=== PATIENT | female | born 1970 | race Native Hawaiian/Other Pacific Islander ===

== ENCOUNTER 2019-12-07 12:05 | Emergency (ER) | payer MEDICAID ==
--- NOTE | 2019-12-07 12:44 | Emergency Department Record ---
History of Present Illness - General Chief Complaint: Difficulty Swallowing Stated Complaint: DIFFICULTY SWALLOWING/CONGESTION Time Seen by Provider: 12/07/19 12:24 Source: Patient Mode of Arrival: Ambulatory Limitations: No limitations - History of Present Illness Initial Comments: pt c/o pain in throat and neck and difficulty swallowing for 2 days. Onset/Timin -: Days(s) History of same: No Improves With: None Worsens With: Other (swallowing) Associated Symptoms: Denies other symptoms - [facility] Coma Scale Eye Response: (4) Open spontaneously Motor Response: (6) Obeys commands Verbal Response: (5) Oriented [facility] Total: 15 - Related Data Home Medications: Previous Rx's Medication Instructions Recorded Acetaminophen [Tylenol 325Mg] 650 mg PO Q6H PRN tablet 08/20/19 Ibuprofen [Motrin 600Mg] 600 mg PO Q6H #30 tablet 08/20/19 Allergies/Adverse Reactions: Allergies Allergy/AdvReac Type Severity Reaction Status Date / Time ciprofloxacin [From Cipro] Allergy Severe MUSCLE PAIN Verified 12/07/19 12:19 ciprofloxacin HCl Allergy Severe MUSCLE PAIN Verified 12/07/19 12:19 [From Cipro] codeine Allergy Severe VOMITING Verified 12/07/19 12:19 morphine Allergy Severe VOMITING Verified 12/07/19 12:19 nitrofurantoin Allergy Severe HIVES Verified 12/07/19 12:19 [From Macrobid] nitrofurantoin Allergy Severe HIVES Verified 12/07/19 12:19 macrocrystalline [From Macrobid] Penicillins Allergy Severe HIVES Verified 12/07/19 12:19 Sulfa (Sulfonamide Allergy Severe HIVES Verified 12/07/19 12:19 Antibiotics) Iodine and Iodide Containing Allergy FLUSHING Verified 12/07/19 12:19 Produc Travel Screening - Travel/Exposure Within Last 30 Days Have you traveled within the last 30 days?: No - Travel/Exposure Within Last Year Have you traveled outside the [place] in the last year?: No - Additonal Travel Details Have you been exposed to anyone with a communicable illness?: No - Travel Symptoms Symptom Screening: None Review of Systems Reviewed: No additional complaints except as noted below Constitutional: Reports: As per HPI. Denies: Chills, Fever, Malaise, Night sweats, Weakness, Weight change Eyes: Reports: As per HPI. Denies: Eye discharge, Eye pain, Photophobia, Vision change ENT: Reports: As per HPI, Throat pain. Denies: Congestion, Dental pain, Ear pain, Epistaxis, Hearing loss Respiratory: Reports: As per HPI. Denies: Cough, Dyspnea, Hemoptysis, Stridor, Wheezes Cardiovascular: Reports: As per HPI. Denies: Arrhythmia, Chest pain, Dyspnea on exertion, Edema, Murmurs, Orthopnea, Palpitations, Paroxysmal nocturnal dyspnea, Rheumatic Fever, Syncope Endocrine: Reports: As per HPI. Denies: Fatigue, Heat or cold intolerance, Polydipsia, Polyuria Gastrointestinal: Reports: As per HPI. Denies: Abdominal pain, Constipation, Diarrhea, Hematemesis, Hematochezia, Melena, Nausea, Vomiting Genitourinary: Reports: As per HPI. Denies: Abnormal menses, Discharge, Dyspareunia, Dysuria, Frequency, Hematuria, Incontinence, Retention, Urgency Musculoskeletal: Reports: As per HPI. Denies: Arthralgia, Back pain, Gout, Joint swelling, Myalgia, Neck pain Skin: Reports: As per HPI. Denies: Bruising, Change in color, Change in hair/nails, Lesions, Pruritus, Rash Neurological: Reports: As per HPI. Denies: Abnormal gait, Confusion, Headache, Numbness, Paresthesias, Seizure, Tingling, Tremors, Vertigo, Weakness Psychiatric: Reports: As per HPI. Denies: Anxiety, Auditory hallucinations, Depression, Homicidal thoughts, Suicidal thoughts, Visual hallucinations Hematological/Lymphatic: Reports: As per HPI. Denies: Anemia, Blood Clots, Easy bleeding, Easy bruising, Swollen glands Past Medical History - SOCIAL HISTORY Smoking Status: Never smoker Alcohol Use: None Drug Use: None - RESPIRATORY Hx Respiratory Disorders: No - CARDIOVASCULAR Hx Cardio Disorders: No - NEURO Hx Neuro Disorders: No - GI Hx GI Disorders: No - Hx Genitourinary Disorders: No Comment:: kidney cyst aspiration - ENDOCRINE Hx Endocrine Disorders: No - MUSCULOSKELETAL Hx Musculoskeletal Disorders: No - PSYCH Hx Psych Problems: No - HEMATOLOGY/ONCOLOGY Hx Hematology/Oncology Disorders: Yes Hx Cancer: Yes (surgical) Hx Chemotherapy: Yes Hx Radiation Therapy: Yes Family Medical History Any Significant Family History?: No Physical Exam - General General Appearance: Alert, Oriented x3, Cooperative, Mild distress - Head Head exam: Normal inspection - Eye Eye exam: Normal appearance, PERRL, EOMI Pupils: Normal accommodation - ENT ENT exam: Normal exam, Mucous membranes moist, Normal external ear exam, Normal orophraynx Ear exam: Normal external inspection. negative: External canal tenderness Nasal Exam: Normal inspection. negative: Discharge, Sinus tenderness Mouth exam: Normal external inspection, Tongue normal Teeth exam: Normal inspection. negative: Dental caries Throat exam: Tonsillar erythema. negative: Tonsillar exudate - Neck Neck exam: Full ROM, Lymphadenopathy, Tenderness - Respiratory Respiratory exam: Normal lung sounds bilaterally. negative: Respiratory di stress - Cardiovascular Cardiovascular Exam: Regular rate, Normal rhythm, Normal heart sounds - GI/Abdominal GI/Abdominal exam: Soft, Normal bowel sounds. negative: Tenderness - Rectal Rectal exam: Deferred - exam: Deferred - Extremities Extremities exam: Normal inspection, Full ROM, Normal capillary refill. negative: Tenderness - Back Back exam: Reports: Normal inspection, Full ROM. Denies: Muscle spasm, Rash noted, Tenderness - Neurological Neurological exam: Alert, Normal gait, Oriented X3, Reflexes normal - Psychiatric Psychiatric exam: Normal affect, Normal mood - Skin Skin exam: Dry, Intact, Normal color, Warm Course Vital Signs 12/07/19 12:14 Temperature 98.1 F Pulse Rate 94 H Respiratory 16 Rate Blood Pressure 110/77 Pulse Ox 97 - Reevaluation(s) Reevaluation #1: 12/07/19 13:59 ct neg Medical Decision Making - Lab Data Result diagrams: 12/07/19 12:52 12/07/19 12:52 Disposition Disposition: Discharge Clinical Impression: Sore throat Difficulty swallowing Qualifiers: Dysphagia type: unspecified Qualified Code(s): R13.10 - Dysphagia, unspecified Disposition: Home, Self-Care Condition: (1) Good Instructions: Dysphagia (ED), Pharyngitis (ED) Additional Instructions: follow up with family doctor. if symptoms continue see ENT doctor. return sooner if worse. drink cool liquids. take motrin for discomfort. Referrals: Branden Webb D.O. [DOCTOR OF OSTEOPATH] - Forms: Patient Portal Access Quality - Quality Measures Quality Measures: N/A - Blood Pressure Screening Does Patient Have Any of the Following: No Blood Pressure Classification: Normal BP Reading Systolic Measurement: 110 Diastolic Measurement: 77 Screening for High Blood Pressure: < Normal BP, F/U Not Required > [G8783]
[2019-12-07 12:59] LABS: ABSOLUTE NEUTROPHIL COUNT 5.12; BASO % 0.1 % (0-6); EOS % 1.4 % (0-6); GRAN % 64.2 % (47-80); HEMATOCRIT 46.5 % (35.0-47.0); HEMOGLOBIN 15.7 gm/dl (11.6-16.0); LYMPH % 27.3 % (16-45); MEAN CELL VOLUME 92.1 fl (81-97); MEAN CORPUSCULAR HEMOGLOBIN 31.1 pg (27-33); MEAN CORPUSCULAR HGB CONC 33.8 g/dl (32-36); MEAN PLATELET VOLUME 9.3 fl (7.4-10.4); PLATELET COUNT 345 K/uL (130-400); RED BLOOD COUNT 5.05 M/uL (3.80-5.40); RED CELL DISTRIBUTION WIDTH 13.2 % (11.5-14.5)
[2019-12-07 13:12] LABS: BLOOD UREA NITROGEN 13 mg/dL (6-20); CREATININE 0.7 mg/dL (0.5-0.9); EST GLOMERULAR FILTRATION RATE > 60 mL/min
[2019-12-07 13:15] LABS: GLUCOSE,RANDOM 108 mg/dL (74-109)
--- NOTE | 2019-12-07 13:40 | CT SCAN REPORT ---
EXAMINATION: CT Neck Soft Tissues without IV Contrast EXAM DATE: 12/07/2019 1:32 PM TECHNIQUE: Standard protocol CT images of the neck were obtained without intravenous contrast. Sagitt al and coronal images were reconstructed. INDICATION: Sore throat w difficulty swallowing COMPARISON: No relevant comparison studies. ENCOUNTER: Not applicable FINDINGS: Lack of contrast administration limits evaluation for mass. Within these limitations, no appreciable mass, architectural distortion or asymmetry within the deep soft tissues of the neck. The aerodigesti ve tract is widely patent. Submandibular and parotid glands and thyroid gland are unremarkable to the limits of noncontrast tech nique. No enlarged cervical lymph nodes to the limits of strict CT size criteria. No morphologically abnorma l cervical lymph nodes to the limits of noncontrast technique. Visualized intracranial and orbital compartments are unremarkable to the limits of noncontrast techni que. Visualized lung apices are well-aerated. Visualized paranasal sinuses and temporal bone structures are well-aerated. Mild thoracic was cervica l kyphosis and multilevel degenerative changes in the cervical spine without large ventral endplate o steophytes and overall no significant spinal canal stenosis but mild multilevel foraminal narrowing. IMPRESSION: Essentially unremarkable noncontrast neck CT. Lack of contrast administration limits evaluation for m ass within these limitations, no convincing neck mass is present. If there is clinical concern for mu cosal based lesion, consider direct visual inspection. Dictated by: Whitney Khan MD on 12/07/2019 1:33 PM. .
[2019-12-07] MEDS ORDERED: METHYLPREDNISOLONE PF 125MG/VIAL IVP ONE (13:48)
== END 2019-12-07 14:13 | disposition home or self-care (01) ==
LOC: ER 12:05
DX: J02.9 Acute pharyngitis, unspecified (principal); R13.10 Dysphagia, unspecified
CPT/HCPCS: 70490; 80048; 85025; 87880; 96374; 99284; J2930